=== PATIENT | female | born 1950 | race Caucasian/White ===

== ENCOUNTER 2017-09-27 10:12 | Day surgery (SDC) | payer OTHER ==
[~2017-09-27 10:12] MED LIST: ACETAMINOPHEN 1000 MG/100 ML IVPB; CEFAZOLIN 1 GM INJ; METOCLOPRAMIDE 10 MG INJ; ONDANSETRON 4 MG INJ; TRANEXAMIC ACID 1,000 MG in DEXTROSE 5% 100 ML IVPB
[2017-09-27] MEDS: GABAPENTIN 300 MG CAP PO (12:07)
[2017-09-27] MEDS: traMADol 50 MG TAB PO ×2 (12:07→12:08)
[2017-09-27] MEDS: DEXAMETHASONE 1 MG TAB PO (12:07)
[2017-09-27] MEDS: VANCOMYCIN 1 GM (PMX) 250 ML IVPB (12:30)
[2017-09-27] MEDS ORDERED: LIDOCAINE 2% (SDV) 5 ML INJ (14:35)
[2017-09-27] MEDS ORDERED: FENTAnyl 50 MCG/ML VIAL ×2 (14:35→16:47)
[2017-09-27] MEDS ORDERED: PROPOFOL 20 ML (14:35)
[2017-09-27] MEDS ORDERED: MIDAZOLAM 1 MG/ML 2 ML INJ (14:35)
[2017-09-27] MEDS ORDERED: DEXAMETHASONE 4 MG/ML 1 ML INJ (14:37)
[2017-09-27] MEDS: BUPIVACAINE 0.5% (SDV) 30 ML, morphine SULFATE (PF) 8 MG, EPINEPHrine 0.3 MG, KETOROLAC... IRR (16:01)
[2017-09-27] MEDS ORDERED: HYDROmorphONE 1 MG/5 ML IV SYRINGE IV (17:00)
[2017-09-27] MEDS ORDERED: OXYCODONE/ACETAMINOPHEN (5/325) TAB PO ×2 (17:00)
[2017-09-27] MEDS: HYDROmorphONE 1 MG/5 ML IV SYRINGE IV ×4 (17:49→18:12)
[2017-09-27] MEDS: ONDANSETRON 4 MG INJ IV (17:50)
[2017-09-27] MEDS ORDERED: MIDAZOLAM 1 MG/ML 2 ML INJ IV (18:00)
[2017-09-27] MEDS: MEPERIDINE 25 MG INJ IV (18:21)
== END 2017-09-27 19:10 | disposition home or self-care (01) ==
LOC: SDS 10:12
DX: Z47.2 Encounter for removal of internal fixation device (principal); S73.102D Unspecified sprain of left hip, subsequent encounter; X58.XXXD Exposure to other specified factors, subsequent encounter; M13.852 Other specified arthritis, left hip; I10 Essential (primary) hypertension; E11.9 Type 2 diabetes mellitus without complications
CPT/HCPCS: 20680; 73502; 73530; 93005